=== PATIENT | male | born 1970 | race Caucasian/White ===

== ENCOUNTER 2017-03-31 02:57 | Emergency (ER) | payer OTHER ==
[~2017-03-31] VITALS: Ht 188 cm; Wt 93.0 kg
--- NOTE | 2017-03-31 03:23 | ED GENERAL ADULT ---
History of Present Illness General Chief Complaint: General Adult Stated Complaint: "DIZZINESS/WEAKNESS [id number]" Source: patient Exam Limitations: no limitations Vital Signs & Intake/Output Vital Signs & Intake/Output Vital Signs Date Time Temp Pulse Resp B/P B/P Pulse O2 O2 Flow FiO2 Mean Ox Delivery Rate 03/31 0356 96 Room Air Room Air 03/31 0313 99.0 106 16 138/81 96 Room Air Allergies Coded Allergies: No Known Allergies (03/31/17) Reconcile Medications Furosemide 40 MG TABLET 1 TAB PO DAILY FLUID RETENTION (Reported) Insulin Glargine,Hum.rec.anlog (Lantus Solostar) 100 UNIT/ML (3 ML) INSULN.PEN 14 U SC DAILY DM (Reported) Triage Note: 46yo MALE TO TRIAGE W/CO "FEELING DIZZY SINCE TUE" STATES HE IS DIABETIC AND HIS FSBS HAVE BEEN NORMAL. Triage Nurses Notes Reviewed? yes Onset: Gradual Duration: day(s):, getting worse Timing: recent history Injury Environment: home Severity: moderate Modifying Factors: Improves With: rest. Associated Symptoms: dizziness, shortness of breath HPI: 46 yo gentleman h/o diabetes, chf, PE presents with weakness, dizziness, shortness of breath. "If I were to talk down the anne just a little bit, I would have to rest because I'd be so short of breath." He notes no cough, phlegm, fever, chest pain. He notes he has not been to a doctor in 2 years since "I was admitted for 2 months at [facility]... they had to drain fluid from my back and everything." Upon further questioning, he notes that he did cocaine over the weekend, "but nothing recently.... " Past History Travel History Traveled to [place] past 21 day No Medical History Any Pertinent Medical History? see below for history Cardiovascular: CHF, hypertension Endocrine: diabetes Surgical History Surgical History: none Psychosocial History What is your primary language Icelandic Tobacco Use: Current Daily Use Daily Tobacco Use Amount/Type: => 5 Cigarettes daily ETOH Use: occasional use Family History Hx Contributory? No Review of Systems Review of Systems Constitutional: Reports: no symptoms. EENTM: Reports: no symptoms. Respiratory: Reports: no symptoms. Cardiovascular: Reports: no symptoms. GI: Reports: no symptoms. Genitourinary: Reports: no symptoms. Musculoskeletal: Reports: no symptoms. Skin: Reports: no symptoms. Neurological/Psychological: Reports: no symptoms. Hematologic/Endocrine: Reports: no symptoms. Immunologic/Allergic: Reports: no symptoms. All Other Systems: Reviewed and Negative Physical Exam Physical Exam General Appearance: well developed/nourished, mild distress Head: atraumatic Eyes: Bilateral: normal appearance. Ears, Nose, Throat: normal pharynx, normal ENT inspection Neck: normal inspection, supple, full range of motion Respiratory: normal breath sounds, chest non-tender, no respiratory distress, quiet respiration, lungs clear Cardiovascular: regular rate/rhythm Gastrointestinal: normal bowel sounds, soft, non-tender, no organomegaly Back: normal inspection Extremities: normal inspection, normal capillary refill, normal range of motion Neurologic/Psych: no motor/sensory deficits, awake, alert, oriented x 3 Skin: intact Lymphatic: adenopathy, no anterior cervical edenilson Core Measures ACS in differential dx? No CVA/TIA Diagnosis: No Severe Sepsis Present: No Septic Shock Present: No Progress Differential Diagnoses I considered the following diagnoses in my evaluation of the patient: chf, anemia, dka, hhnk vs other. Plan of Care: Orders Procedure Date/time Status URINE DRUG SCREEN FOR ER ONLY 03/31 0420 Complete URINALYSIS 03/31 0420 Complete Add-on Test (ER Only) 03/31 0410 Active ETHANOL 03/31 0340 Complete ACETONE 03/31 0340 Complete MIXED VENOUS BLOOD GAS (GEN) 03/31 0332 Complete D-DIMER 03/31 0332 Complete TROPONIN LEVEL 03/31 0323 Complete COMPREHENSIVE METABOLIC PANEL 03/31 0323 Complete CBC WITHOUT DIFFERENTIAL 03/31 0323 Complete B-TYPE NATRIURETIC PEP (BNP) 03/31 0323 Complete EKG 03/31 0323 Active Laboratory Tests 03/31/17 0420: Urine Opiates Screen < 100.00, Methadone Screen < 40, Barbiturate Screen < 60, Ur Phencyclidine Scrn < 6.00, Amphetamines Screen < 100, U Benzodiazepines Scrn < 85, Urine Cocaine Screen > 1000 H, Urine Cannabis Screen < 5.00, Urinalysis LIGHT H, Urine Color YEL, Urine Clarity HAZY H, Urine pH 6.0, Ur Specific Baring 1.010, Urine Protein 100 H, Urine Ketones NEG, Urine Nitrite NEG, Urine Bilirubin NEG, Urine Urobilinogen 1.0, Ur Leukocyte Esterase NEG, Ur Microscopic SEDIMENT EXAMINED, Urine RBC 10-15 H, Urine WBC RARE, Ur Epithelial Cells FEW, Urine Bacteria FEW H, Urine Hemoglobin MOD H, Urine Glucose >=1000 H 03/31/17 0340: Bicarbonate Actual 33 H, Mixed VBG pH 7.50 H, Mixed VBG pCO2 43, Mixed VBG O2 Saturation 43, P-50 (Temp Corrected) Y, Carboxyhemoglobin 0.6 L, O2 Concentration % RA, Temperature 99.0, Anion Gap 5, Estimated GFR 51 L, BUN/ Creatinine Ratio 19.3, Glucose 422 H, Calcium 7.1 L, Total Bilirubin 0.4, AST 30, ALT 34, Alkaline Phosphatase 87, Troponin I 0.04, Zcf-S-Rogwvwwkxtn Pept 944 H, Total Protein 4.6 L, Albumin 2.3 L, Globulin 2.3, Albumin/Globulin Ratio 1.0 L, D-Dimer 961 H, CBC w Diff NO MAN DIFF REQ, RBC 3.76 L, MCV 92.4, MCH 32.5 H, RDW 13.4, MPV 10.4, Gran % 58.5, Lymphocytes % 25.1, Monocytes % 14.6 H, Eosinophils % 1.1, Basophils % 0.7, Absolute Granulocytes 1.4, Absolute Lymphocytes 0.6 L, Absolute Monocytes 0.4, Absolute Eosinophils 0, Absolute Basophils 0, PUBS MCHC 35.1, Phlebotomy Draw Site RAC, Serum Alcohol < 10.0, Acetone Level NEGATIVE 03/31/17 0332: Acetone Level Cancelled Diagnostic Imaging: Viewed by Me: Radiology Read. Discussed w/RAD: Radiology Read. Radiology Impression: ct angio... no PE CXR Impression: no acute abnormality, no infiltrates, normal size heart, normal mediastinum Initial ED EKG: sinus tach Comments: PATIENT: RENETTA SANON PRESENT AGE: 46 PATIENT ACCOUNT NO: [id number] : 71 LOCATION: [facility] ORDERING PHYSICIAN: DEBBY BYRD MD SERVICE DATE: 03/31/17 EXAM TYPE: CAT - CTA CHEST-PULMONARY EMBOLISM EXAMINATION: CT ANGIOGRAM OF THE CHEST WITH AND WITHOUT CONTRAST (CT PULMONARY ANGIOGRAM FOR PE) CLINICAL INFORMATION: Dyspnea on exertion. Elevated d-dimer. COMPARISON: Radiograph from today TECHNIQUE: Prior to contrast administration, noncontrast localization images were obtained. Subsequently, multidetector volumetric imaging was performed from the thoracic inlet to below the diaphragms following the administration of 79 mL Optiray 350 intravenous contrast. No contrast reaction reported. Sagittal, coronal, and MIP oblique sagittal reformatted images were obtained on the CT workstation, uploaded to PACS, and reviewed. Total exam dose-length product 465 mGy-cm. FINDINGS: QUALITY OF STUDY/CONTRAST BOLUS: Satisfactory PULMONARY ARTERIES: No central or segmental pulmonary emboli. THORACIC AORTA: No aneurysm or dissection. LUNG: The central airways are patent. Bibasilar subsegmental atelectasis. No dense consolidation. Pulmonary nodules are present. 1. Right upper lobe 0.4 cm nodule, series 3 image 110. 2. 0.4 cm left upper lobe nodule series 3 image 127. 3. 0.3 cm anterior left upper lobe nodule, series 3 image 125. PLEURA: No pleural effusion or pneumothorax. MEDIASTINUM: Normal heart size. Coronary artery calcifications present. No pericardial effusion. No hilar or mediastinal lymphadenopathy. No evidence of septal bowing or right heart strain. CHEST WALL/AXILLA: No axillary or internal mammary lymphadenopathy. OSSEOUS STRUCTURES: No acute or suspicious osseous abnormality. Mild degenerative changes in the spine. UPPER ABDOMEN: Unremarkable. No reflux of contrast into the hepatic veins to suggest elevated right heart pressures. IMPRESSION: 1. No pulmonary embolism or other acute intrathoracic abnormality. 2. Pulmonary nodules measuring up to 0.4 cm. No further follow-up necessary in a low risk patient. Twelve-month follow-up can be considered in a high-risk patient. VTE: negative DICTATED BY: EVIE BRANCH MD DATE/TIME DICTATED:03/31/17454 RESEARCH EPIDEMIOLOGIST:LETHA DATE/TIME TRANSCRIBED:03/31/17454 CONFIDENTIAL, DO NOT COPY WITHOUT APPROPRIATE AUTHORIZATION. <Electronically signed in Other Vendor System> SIGNED BY: EVIE BRANCH MD 03/31 0502 PATIENT: RENETTA SANON PRESENT AGE: 46 PATIENT ACCOUNT NO: [id number] : 71 LOCATION: [facility] ORDERING PHYSICIAN: DEBBY BYRD MD SERVICE DATE: 03/31/17 EXAM TYPE: RAD - XRY-PORTABLE CHEST XRAY EXAMINATION: XR PORTABLE CHEST CLINICAL INFORMATION: Dyspnea COMPARISON: None TECHNIQUE: Portable frontal view of the chest was obtained. FINDINGS: The lungs are well expanded. There is no focal consolidation, edema, or effusion. No pneumothorax. The cardiomediastinal silhouette is within normal limits. No acute osseous abnormality. IMPRESSION: No acute pulmonary findings. DICTATED BY: EVIE BRANCH MD DATE/TIME DICTATED:03/31/17401 RESEARCH EPIDEMIOLOGIST:LETHA DATE/TIME TRANSCRIBED:03/31/17401 CONFIDENTIAL, DO NOT COPY WITHOUT APPROPRIATE AUTHORIZATION. <Electronically signed in Other Vendor System> SIGNED BY: EVIE BRANCH MD 03/31 Departure Departure Disposition: HOME OR SELF CARE Condition: Stable Clinical Impression Primary Impression: Cocaine abuse Secondary Impressions: Dehydration, Hyperglycemia Referrals: UNKNOWN (PCP/Family) Departure Forms: Customer Survey General Discharge Information Comments 03/31/17, 5:34am.... pt feeling better after insulin and iv fluids.... Discussed results of labs... negative ct scan for PE, no sign of infection. Urine + for cocaine. Pt safe and stable for discharge (no chest pain, no shortness of breath).... close follow up advised. Critical Care Note Critical Care Note Critical Care Time: non-applicable
[2017-03-31] MEDS ORDERED: FUROSEMIDE40 M1 PO (03:53)
[2017-03-31] MEDS ORDERED: LANTUS SOL100 UNIT/1 SC (03:56)
[2017-03-31 03:58] LABS: ABSOLUTE BASOPHIL COUNT 0 /CUMM (0.0-0.2); ABSOLUTE EOSINOPHIL COUNT 0 /CUMM (0.0-0.7); ABSOLUTE GRANULOCYTE CT 1.4 /CUMM (1.4-6.5); ABSOLUTE LYMPH COUNT 0.6 /CUMM (1.2-3.4); ABSOLUTE MONOCYTE COUNT 0.4 /CUMM (0.10-0.60); BASOPHIL % 0.7 % (0.0-2.0); EOSINOPHIL % 1.1 % (0-5); GRANULOCYTE % 58.5 % (42.2-75.2); HEMATOCRIT 34.8 % (42-52); MEAN CORPUSCULAR HGB 32.5 PG (27.0-31.0); MEAN CORPUSCULAR HGB CONC 35.1 G/DL (33.0-37.0); MEAN CORPUSCULAR VOLUME 92.4 FL (80.0-94.0); MEAN PLATELET VOLUME 10.4 FL (7.4-10.4); RBC DISTRIBUTION WIDTH 13.4 % (11.5-14.5); RED BLOOD CELL CT 3.76 /CUMM (4.70-6.10); WHITE BLOOD CELL COUNT 2.5 /CUMM (4.8-10.8)
--- NOTE | 2017-03-31 04:06 | RADIOLOGY REPORT ---
EXAMINATION: XR PORTABLE CHEST CLINICAL INFORMATION: Dyspnea COMPARISON: None TECHNIQUE: Portable frontal view of the chest was obtained. FINDINGS: The lungs are well expanded. There is no focal consolidation, edema, or effusion. No pneumothorax. The cardiomediastinal silhouette is within normal limits. No acute osseous abnormality. IMPRESSION: No acute pulmonary findings.
[2017-03-31 04:13] LABS: PLATELET COUNT 39 /CUMM (130-400)
--- NOTE | 2017-03-31 05:02 | CT SCAN REPORT ---
EXAMINATION: CT ANGIOGRAM OF THE CHEST WITH AND WITHOUT CONTRAST (CT PULMONARY ANGIOGRAM FOR PE) CLINICAL INFORMATION: Dyspnea on exertion. Elevated d-dimer. COMPARISON: Radiograph from today TECHNIQUE: Prior to contrast administration, noncontrast localization images were obtained. Subsequently, multidetector volumetric imaging was performed from the thoracic inlet to below the diaphragms following the administration of 79 mL Optiray 350 intravenous contrast. No contrast reaction reported. Sagittal, coronal, and MIP oblique sagittal reformatted images were obtained on the CT workstation, uploaded to PACS, and reviewed. Total exam dose-length product 465 mGy-cm. FINDINGS: QUALITY OF STUDY/CONTRAST BOLUS: Satisfactory PULMONARY ARTERIES: No central or segmental pulmonary emboli. THORACIC AORTA: No aneurysm or dissection. LUNG: The central airways are patent. Bibasilar subsegmental atelectasis. No dense consolidation. Pulmonary nodules are present. 1. Right upper lobe 0.4 cm nodule, series 3 image 110. 2. 0.4 cm left upper lobe nodule series 3 image 127. 3. 0.3 cm anterior left upper lobe nodule, series 3 image 125. PLEURA: No pleural effusion or pneumothorax. MEDIASTINUM: Normal heart size. Coronary artery calcifications present. No pericardial effusion. No hilar or mediastinal lymphadenopathy. No evidence of septal bowing or right heart strain. CHEST WALL/AXILLA: No axillary or internal mammary lymphadenopathy. OSSEOUS STRUCTURES: No acute or suspicious osseous abnormality. Mild degenerative changes in the spine. UPPER ABDOMEN: Unremarkable. No reflux of contrast into the hepatic veins to suggest elevated right heart pressures. IMPRESSION: 1. No pulmonary embolism or other acute intrathoracic abnormality. 2. Pulmonary nodules measuring up to 0.4 cm. No further follow-up necessary in a low risk patient. Twelve-month follow-up can be considered in a high-risk patient. VTE: negative
[2017-03-31 05:28] VITALS: BP 147/81
== END 2017-03-31 05:29 ==
LOC: ERH 02:57
PROVIDERS: Pediatrics
DX: E86.0 Dehydration (principal); E11.65 Type 2 diabetes mellitus with hyperglycemia; F14.10 Cocaine abuse, uncomplicated; R53.1 Weakness
CPT/HCPCS: 80307; 81001; 93005; 93010; 96360; 96361; 96372; G0480; J1815